=== PATIENT | female | born 1950 | race African-American/Black ===

== ENCOUNTER → 2024-01-15 | Outpatient (CLI) | payer OTHER | END | disposition home or self-care (01) | LOC: SHCH 12:11 → EDUNIT# 13:00 | PROVIDERS: ATTEND Internal Medicine Cardiovascular Disease | DX: I08.0 Rheumatic disorders of both mitral and aortic valves (principal); I70.293 Other atherosclerosis of native arteries of extremities, bilateral legs; I25.3 Aneurysm of heart; R09.89 Other specified symptoms and signs involving the circulatory and respiratory systems; R01.1 Cardiac murmur, unspecified | CPT/HCPCS: 93306; 93880; 93925 ==